=== PATIENT | male | born 1965 | race Caucasian/White ===

== ENCOUNTER 2018-06-19 10:07 | Emergency (ER) | payer BC, OTHER ==
--- NOTE | 2018-06-19 10:41 | EDM.PDOC ---
ED HPI GENERAL MEDICAL PROBLEM - General Chief Complaint: Skin Complaint Stated Complaint: rash/??infection Time Seen by Provider: 06/19/18 10:30 Source of Information: Reports: Patient History Limitations: Reports: No Limitations - History of Present Illness INITIAL COMMENTS - FREE TEXT/NARRATIVE: Patient presents with complaints of rash, hot, swollen area around the belly button. History of umbilical hernia that has not been repaired. He states he has had this rash for over a year. He also has a smaller area to the left lateral abdomen that is similar in nature. He has a dermatology appt. on . Was seen by a surgeon for concerns that this was a cancerous lesion. This also was quite some time ago. No primary provider. Only seen when needed. Onset: Gradual Duration: Getting Worse Location: Reports: Abdomen Abdominal Pain Score (Numeric/FACES): 6 - Related Data Allergies Allergy/AdvReac Type Severity Reaction Status Date / Time No Known Allergies Allergy Verified 06/19/18 10:30 Home Meds: Home Meds . [No Known Home Meds] 06/19/18 [History] ED ROS GENERAL - Review of Systems Review Of Systems: See Below Constitutional: Reports: No Symptoms HEENT: Reports: No Symptoms Respiratory: Reports: No Symptoms Cardiovascular: Reports: No Symptoms Endocrine: Reports: No Symptoms GI/Abdominal: Reports: No Symptoms : Reports: No Symptoms Musculoskeletal: Reports: No Symptoms Skin: Reports: Rash Neurological: Reports: No Symptoms Psychiatric: Reports: No Symptoms Hematologic/Lymphatic: Reports: No Symptoms Immunologic: Reports: No Symptoms ED EXAM, SKIN/RASH Exam: See Below Exam Limited By: No Limitations General Appearance: Alert, WD/WN, No Apparent Distress Eye Exam: Bilateral Eye: EOMI, PERRL Head: Atraumatic, Normocephalic Neck: Normal Inspection, Supple, Non-Tender, Full Range of Motion Respiratory/Chest: No Respiratory Distress, Lungs Clear, Normal Breath Sounds, No Accessory Muscle Use, Chest Non-Tender Cardiovascular: Normal Peripheral Pulses, Regular Rate, Rhythm, No Edema, No Gallop, No JVD, No Murmur, No Rub Peripheral Pulses: 2+: Posterior Tibial (L), Posterior Tibial (R), Dorsalis Pedis (L), Dorsalis Pedis (R) GI/Abdominal: Normal Bowel Sounds, Soft, Non-Tender, No Organomegaly, No Distention, No Abnormal Bruit, No Mass, Hernia Extremities: Normal Inspection, Normal Range of Motion, Non-Tender, No Pedal Edema, Normal Capillary Refill Neurological: Alert, Oriented, CN II-XII Intact, Normal Cognition, Normal Gait, Normal Reflexes, No Motor/Sensory Deficits Skin: Erythema, Increased Warmth, Rash (2 rashes: large umbilical area measures 7 x7 and the left lower smaller is 2 x 3.5 cm total erythematous area is 15 x 36 to the umbilicus) Course - Vital Signs Last Recorded V/S: Last Vital Signs Temp 36.5 C 06/19/18 10:10 Pulse 74 06/19/18 10:10 Resp 20 06/19/18 10:10 BP 165/96 H 06/19/18 10:10 Pulse Ox 98 06/19/18 10:10 - Orders/Labs/Meds Orders: Active Orders 24 hr Category Date Time Status CBC WITH AUTO DIFF [HEME] Stat Lab 06/19/18 10:30 Ordered COMPREHENSIVE METABOLIC PN,CMP [CHEM] Stat Lab 06/19/18 10:30 Ordered CRP [C-REACTIVE PROTEIN] [CHEM] Stat Lab 06/19/18 10:36 Ordered LACTIC ACID [CHEM] Stat Lab 06/19/18 10:30 Ordered Departure - Departure Time of Disposition: 11:22 Disposition: Home, Self-Care 01 Condition: Good Clinical Impression: Abdominal wall cellulitis - Discharge Information *PRESCRIPTION DRUG MONITORING PROGRAM REVIEWED*: Not Applicable *COPY OF PRESCRIPTION DRUG MONITORING REPORT IN PATIENT ROBERT: Not Applicable Instructions: Cellulitis, Adult, [id number], Cephalexin tablets or capsules, Probiotics Referrals: PCP,None [Primary Care Provider] - Additional Instructions: Plan 1. Stay well hydrated 2. You should establish primary care in [facility] for routine health follow up 3. Take the Keflex 500 mg 4 times per day until finished. Follow up with dermatology as scheduled and with primary care for additional symptom management 4. You also should eat 1-2 yogurts daily or take daily probiotics for the next 30 days to prevent a bacterial infection of the intestines caused by antibiotic use 5. Please call with any additional questions or concerns - Problem List & Annotations (1) Abdominal wall cellulitis SNOMED Code(s): 12886242 Code(s): L03.311 - CELLULITIS OF ABDOMINAL WALL Status: Acute Priority: Low Current Visit: Yes - Problem List Review Problem List Initiated/Reviewed/Updated: Yes - My Orders Last 24 Hours: My Active Orders 06/19/18 10:30 CBC WITH AUTO DIFF [HEME] Stat COMPREHENSIVE METABOLIC PN,CMP [CHEM] Stat LACTIC ACID [CHEM] Stat 06/19/18 10:36 CRP [C-REACTIVE PROTEIN] [CHEM] Stat - Assessment/Plan Last 24 Hours: My Active Orders 06/19/18 10:30 CBC WITH AUTO DIFF [HEME] Stat COMPREHENSIVE METABOLIC PN,CMP [CHEM] Stat LACTIC ACID [CHEM] Stat 06/19/18 10:36 CRP [C-REACTIVE PROTEIN] [CHEM] Stat Assessment:: abdominal cellulitis Plan: Plan 1. Stay well hydrated 2. You should establish primary care in [facility] for routine health follow up 3. Take the Keflex 500 mg 4 times per day until finished. Follow up with dermatology as scheduled and with primary care for additional symptom management 4. You also should eat 1-2 yogurts daily or take daily probiotics for the next 30 days to prevent a bacterial infection of the intestines caused by antibiotic use 5. Please call with any additional questions or concerns
[2018-06-19 11:05] LABS: CHLORIDE,CL 106 mmol/L (98-107); SODIUM,NA 143 mmol/L (136-145)
[2018-06-19 11:08] LABS: ANION GAP 15.2 mmol/L (10-20)
[2018-06-19] MEDS: Cephalexin 500 MG Cap PO ONE (11:10)
== END 2018-06-19 11:23 | disposition home or self-care (01) ==
LOC: VM.ED 10:07
DX: L03.311 Cellulitis of abdominal wall (principal)
CPT/HCPCS: 36415; 80053; 83605; 85025; 86140; 99283; A9270-GY

== ENCOUNTER 2020-02-13 17:02 | Emergency (ER) | payer OTHER ==
[2020-02-13] MEDS ORDERED: Lidocaine 1% with EPINEPHrine 1:100,000 20 ML MDV INFILT STA (17:23)
[2020-02-13] MEDS ORDERED: Bupivacaine 0.5% 30 ML SDV INJECT PRN (17:23)
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
[2020-02-13] MEDS ORDERED: Amoxicillin/Clavulanate K 875-125 MG Tab PO ONE (20:17)
[2020-02-13] MEDS ORDERED: Diphtheria,Pertussis(Acell),Tetanus Vaccine 0.5 ML Syringe IM ONE (20:25)
== END 2020-02-13 20:58 | disposition home or self-care (01) ==
LOC: VM.ED 17:02
DX: S02.2XXA Fracture of nasal bones, initial encounter for closed fracture (principal); S01.81XA Laceration without foreign body of other part of head, initial encounter; E66.9 Obesity, unspecified; Z68.38 Body mass index [BMI] 38.0-38.9, adult; V86.59XA Driver of other special all-terrain or other off-road motor vehicle injured in nontraffic accident, initial encounter
CPT/HCPCS: 12052; 70450; 70486; 99284; A9270

== ENCOUNTER 2021-10-18 16:14 | Emergency (ER) | payer OTHER ==
[2021-10-18] MEDS ORDERED: cefTRIAXone 1 GM, Lidocaine 1% 2.1 ML IM ONE ×2 (16:31)
== END 2021-10-18 17:00 | disposition home or self-care (01) ==
LOC: VM.ED 16:14
DX: T81.40XA Infection following a procedure, unspecified, initial encounter (principal); E66.9 Obesity, unspecified; Z68.30 Body mass index [BMI] 30.0-30.9, adult; Z79.899 Other long term (current) drug therapy
CPT/HCPCS: 87070; 87077; 87186; 96372; 99284; J0696